=== PATIENT | male | born 1995 | race Caucasian/White ===

== ENCOUNTER 2016-08-27 09:39 | Emergency (ER) | payer OTHER ==
--- NOTE | 2016-08-27 10:02 | UC ---
Abdominal Pain Male HPI - HPI Summary HPI Summary: 21 yo M c/o LLQ abd pain x 3-4 days, "hard to go sometimes" with urination. No fever. No vomiting. Had diarrhea once today and now it is back to normal. No testicular pain or penile discharge. Has not eaten today. Fam hx diverticulitis and kidney stones. - History of Current Complaint Chief Complaint: UCGI Stated Complaint: ABD PAIN Time Seen by Provider: 08/27/16 10:01 Hx Obtained From: Patient Onset/Duration: Gradual Onset, Lasting Days - 3-4, Still Present Timing: Constant Severity Initially: Moderate Severity Currently: Moderate Pain Intensity: 6 Pain Scale Used: 0-10 Numeric Location: Discrete At: LLQ Radiates: No Character: Sharp - stabbing Aggravating Factor(s):: Nothing Alleviating Factor(s): Nothing Associated Signs And Symptoms: Positive: Urinary Symptoms - Risk Factors Testicular Torsion: Negative Cardiac Risk Factors: Negative - Allergies/Home Medications Allergies/Adverse Reactions: Allergies Allergy/AdvReac Type Severity Reaction Status Date / Time No Known Allergies Allergy Verified 08/27/16 09:55 Home Medications: Home Medications NK [No Home Medications Reported] 08/27/16 [History Confirmed 08/27/16] PMH/Surg Hx/FS Hx/Imm Hx Previously Healthy: Yes - Surgical History Surgical History: Yes Surgery Procedure, Year, and Place: Spinal Stenosis, 1993 - Family History Known Family History: Positive: Cardiac Disease - CHF, Other - diverticulitis - Social History Occupation: Employed Full-time Lives: Alone Alcohol Use: Weekly Alcohol Amount: 18-30 beers Substance Use Type: None Smoking Status (MU): Heavy Every Day Tobacco Smoker Type: Cigarettes Amount Used/How Often: < 1 PPD Length of Time of Smoking/Using Tobacco: 2 Years Have You Smoked in the Last Year: Yes Household Exposure Type: Cigarettes Review of Systems Constitutional: Negative Skin: Negative Eyes: Negative ENT: Negative Respiratory: Negative Cardiovascular: Negative Gastrointestinal: Abdominal Pain Genitourinary: Other - "hard to go sometimes" Motor: Negative Neurovascular: Negative Musculoskeletal: Negative Neurological: Negative Psychological: Negative All Other Systems Reviewed And Are Negative: Yes Physical Exam Triage Information Reviewed: Yes Appearance: Well-Appearing, Well-Nourished Vital Signs: Initial Vital Signs Temp 98.4 F 08/27/16 09:46 Pulse 86 08/27/16 09:46 Resp 22 08/27/16 09:46 BP 139/49 08/27/16 09:46 Pulse Ox 100 08/27/16 09:46 Vital Signs Reviewed: Yes Eyes: Positive: Conjunctiva Clear ENT: Positive: Normal ENT inspection Neck: Positive: Supple Respiratory: Positive: Lungs clear, Normal breath sounds, No respiratory distress Cardiovascular: Positive: RRR, No Murmur, Pulses Normal, Brisk Capillary Refill Abdomen Description: Positive: Soft, Guarding, Other: - tender LLQ, no rebound. Negative: CVA Tenderness (R), CVA Tenderness (L), Distended, McBurney's Point Tenderness, Peritoneal Signs, Pulsatile Mass Bowel Sounds: Positive: Present, Other: - Pt declines testicular exam Musculoskeletal: Positive: Strength Intact, ROM Intact Neurological: Positive: Alert, Muscle Tone Normal Psychological Exam: Normal Skin Exam: Normal Abd Pain Male Course/Dx - Course Course Of Treatment: UA is entirely negative. - Differential Dx/Clinical Impression Differential Diagnosis/HQI/PQRI: Appendicitis, Constipation, Diverticulitis, Testicular Torsion, Ureteral Stone, Urinary Tract Infection Provider Diagnoses: LLQ abdominal pain - Physician Notification/Consults Time Discussed With Above Provider: 10:30 - Dr. Howe Instructed by Provider To: MD Will See In ED Discharge - Discharge Plan Condition: Stable Disposition: AGAINST MEDICAL ADVICE Patient Education Materials: Acute Abdominal Pain (ED) Forms: *Work Release Referrals: Morelia Murray MD [Primary Care Provider] - Additional Instructions: Dr. Jacobsen recommends that you go to the emergency room right now. Do not eat or drink.
[2016-08-27 10:11] VITALS: BP 139/49
[2016-08-27] MEDS ORDERED: Ibuprofen TAB* 600 MG PO ONE (10:15)
== END 2016-08-27 10:40 | disposition left against medical advice (07) ==
LOC: UCCORT 09:39
DX: R10.32 Left lower quadrant pain (principal); F17.210 Nicotine dependence, cigarettes, uncomplicated
CPT/HCPCS: 99212; G0463